=== PATIENT | male | born 1985 | race Caucasian/White ===

== ENCOUNTER 2018-04-23 13:03 | Emergency (ER) | payer SELFPAY ==
[2018-04-23 13:13] VITALS: BP 130/79; PULSE 81; TEMP 97; BMI 23.6
--- NOTE | 2018-04-23 13:26 | PDOC ---
History of Present Illness - General Chief Complaint: RX Refill Stated Complaint: Asthma Time Seen by Provider: 04/23/18 13:20 History Source: Patient Past History - Past Medical History Allergies/Adverse Reactions: Allergies Allergy/AdvReac Type Severity Reaction Status Date / Time No Known Allergies Allergy Verified 04/23/18 13:06 Home Medications: Ambulatory Orders No Home Medications 0 dose .ROUTE UTDICT 08/27/12 Albuterol Sulfate [Proventil HFA Inhaler -] 1 - 2 inh PO QID #1 inhaler Asthma: Yes COPD: No - Suicide/Smoking/Psychosocial Hx Smoking Status: Yes Smoking History: Never smoked Number of Cigarettes Smoked Daily: 1 Information on smoking cessation initiated: No Review of Systems - Review of Systems Respiratory: No: Shortness of Breath, Wheezing Cardiac (ROS): No: Chest Pain *Physical Exam - Vital Signs Last Vital Signs Temp Pulse Resp BP Pulse Ox 97 F L 81 18 130/79 98 04/23/18 13:04 04/23/18 13:04 04/23/18 13:04 04/23/18 13:04 04/23/18 13:04 - Physical Exam General Appearance: Yes: Appropriately Dressed. No: Apparent Distress Neck: positive: Supple Respiratory/Chest: positive: Lungs Clear, Normal Breath Sounds. negative: Respiratory Distress, Wheezing Cardiovascular: positive: Regular Rate, S1, S2 Integumentary: positive: Dry, Warm Neurologic: positive: Fully Oriented, Alert, Normal Mood/Affect Medical Decision Making - Medical Decision Making 04/23/18 13:25 32-year-old male, history of asthma, here for asthma pump refilled. Ran out last night. No acute symptoms at this time. Pt well-appearing and stable with clear chest/lungs. Dc with refill *DC/Admit/Observation/Transfer Diagnosis at time of Disposition: Medication refill - Discharge Dispostion Disposition: HOME Condition at time of disposition: Good - Prescriptions Prescriptions: Albuterol Sulfate [Proventil HFA Inhaler -] 1 - 2 inh PO QID #1 inhaler - Referrals - Patient Instructions Additional Instructions: Use pump as directed - Post Discharge Activity
== END 2018-04-23 13:32 | disposition home or self-care (01) ==
LOC: JERFT 13:03 → JER 13:03 → JERFT 13:32
DX: Z76.0 Encounter for issue of repeat prescription (principal); J45.909 Unspecified asthma, uncomplicated
CPT/HCPCS: 99281-25

== ENCOUNTER 2019-05-25 14:35 | Emergency (ER) | payer SELFPAY ==
[2019-05-25 14:40] VITALS: BP 134/80; PULSE 83; TEMP 99.3; BMI 23.6
--- NOTE | 2019-05-25 16:29 | PDOC ---
History of Present Illness - General Chief Complaint: Vomiting/Diarrhea Stated Complaint: ASTHMA/ABD PAIN Time Seen by Provider: 05/25/19 15:40 History Source: Patient Exam Limitations: No Limitations Past History - Past Medical History Allergies/Adverse Reactions: Allergies Allergy/AdvReac Type Severity Reaction Status Date / Time No Known Allergies Allergy Verified 05/25/19 14:40 Home Medications: Ambulatory Orders No Home Medications 0 dose .ROUTE UTDICT 08/27/12 Albuterol Sulfate [Proventil HFA Inhaler -] 1 - 2 inh PO QID #1 inhaler Albuterol Sulfate Inhaler - [Ventolin HFA Inhaler -] 1 - 2 inh PO Q4H #1 inhaler 05/25/19 Asthma: Yes COPD: No - Psycho Social/Smoking Cessation Hx Smoking Status: Yes Smoking History: Never smoked Number of Cigarettes Smoked Daily: 1 *Physical Exam - Vital Signs Last Vital Signs Temp Pulse Resp BP Pulse Ox 99.3 F 83 18 134/80 99 05/25/19 14:36 05/25/19 14:36 05/25/19 14:36 05/25/19 14:36 05/25/19 14:36 - Physical Exam General Appearance: No: Apparent Distress Respiratory/Chest: positive: Lungs Clear, Normal Breath Sounds. negative: Respiratory Distress Cardiovascular: positive: Regular Rhythm, Regular Rate, S1, S2. negative: Murmur Gastrointestinal/Abdominal: positive: Normal Bowel Sounds, Soft. negative: Tender, Distended, Guarding, Rebound Neurologic: positive: Alert Medical Decision Making - Medical Decision Making 33 y/o M with hx of asthma presents with 2 episodes of NBNB emesis and 2 episodes of diarrhea which occurred when he woke up at 4 AM today. Vomiting and diarrhea has not occurred since then. Patient was able to eat a sandwich at 10 AM without further vomiting/diarrhea. However, states feels body aches. Also requesting refill of his Albuterol inhaler. Denies fever, sob, cp, abd pain, recent travel, sick contacts, use of abx, possible bad food exposure Patient appears comfortable Likely mild gastroenteritis stable for dc 05/25/19 16:22 Discharge - Discharge Information Problems reviewed: Yes Clinical Impression/Diagnosis: Gastroenteritis Condition: Stable Disposition: HOME - Admission No - Additional Discharge Information Prescriptions: Albuterol Sulfate Inhaler - [Ventolin HFA Inhaler -] 1 - 2 inh PO Q4H #1 inhaler Prescription Drug Monitoring Program (I-STOP) results: I-STOP not reviewed - Follow up/Referral - Patient Discharge Instructions Patient Printed Discharge Instructions: DI for Viral Gastroenteritis -- Adult Additional Instructions: Thank you for choosing [facility]. It was a pleasure taking care of you. Drink 2-3 L of water daily Eat light food like bananas, rice, applesauce, toast until feeling better Follow-up with your doctor in 2 days Return to the Emergency Department if your symptoms worsen or persist, you have fever, unable to keep down liquids or other concerning symptoms. - Post Discharge Activity Work/Back to School Note: Back to Work
== END 2019-05-25 16:40 | disposition home or self-care (01) ==
LOC: JERFT 14:35
DX: K52.9 Noninfective gastroenteritis and colitis, unspecified (principal); J45.909 Unspecified asthma, uncomplicated
CPT/HCPCS: 99281-25

== ENCOUNTER 2020-06-21 12:52 | Emergency (ER) | payer SELFPAY ==
[2020-06-21 13:03] VITALS: BP 138/75; PULSE 74; BMI 26.6
[2020-06-21] MEDS ORDERED: KETOROLAC TROMETHAMINE 30 MG/1 ML VIAL IM ONE (13:48)
[2020-06-21] MEDS ORDERED: KETOROLAC TROMETHAMINE 30 MG/1 ML VIAL ONE (13:50)
== END 2020-06-21 14:08 | disposition home or self-care (01) ==
LOC: JERFT 12:52
PROC: 3E0233Z Introduction of Anti-inflammatory into Muscle, Percutaneous Approach (ICD-10-PCS; principal; 2020-06-21)
DX: M54.32 Sciatica, left side (principal)
CPT/HCPCS: 99284-25

== ENCOUNTER 2021-05-04 15:50 | Emergency (ER) | payer SELFPAY ==
[2021-05-04 16:32] VITALS: BP 150/93; PULSE 86; TEMP 98.1; BMI 27.3
== END 2021-05-04 17:17 | disposition home or self-care (01) ==
LOC: JER 15:50
DX: Z76.0 Encounter for issue of repeat prescription (principal)
CPT/HCPCS: 99281-25

== ENCOUNTER 2022-03-14 06:47 | Emergency (ER) | payer OTHER ==
[2022-03-14 06:59] VITALS: BP 145/94; PULSE 87; RESP 18; TEMP 97.7; BMI 28.1
== END 2022-03-14 07:45 | disposition home or self-care (01) ==
LOC: JER 06:47 → JERFT 06:47
DX: Z76.0 Encounter for issue of repeat prescription (principal)
CPT/HCPCS: 99281-25

== ENCOUNTER 2022-05-29 07:27 | Emergency (ER) | payer OTHER ==
[2022-05-29 07:40] VITALS: BP 146/100; PULSE 86; RESP 18; TEMP 97.7; BMI 25.8
== END 2022-05-29 08:25 | disposition home or self-care (01) ==
LOC: JER 07:27 → JERFT 07:27
DX: J45.20 Mild intermittent asthma, uncomplicated (principal)
CPT/HCPCS: 99281-25